=== PATIENT | male | born 1985 | race Two or more races ===

== ENCOUNTER 2017-03-13 15:29 | Emergency (ER) | payer SELFPAY ==
[~2017-03-13] VITALS: Ht 172.7 cm; Wt 83.9 kg
[2017-03-13 15:54] VITALS: BP 143/101
--- NOTE | 2017-03-13 15:59 | PHYS DOC ---
Past Medical History Past Medical History: No Pertinent History Past Surgical History: No Surgical History Alcohol Use: None Drug Use: None Adult General Chief Complaint Chief Complaint: UPPER EXTREMITY PAIN [facility] HPI Patient is a 32 year old male presents stating 2 hours prior to arrival he was having some numbness and tingling arm as well as into his left leg. Patient denies any injury or trauma. He states one hour prior to arrival he took a Tylenol in the numbness and tingling has decreased. Patient denies as mentioned any traumas or injuries. He states that this occasionally happens spontaneously once a month. 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 Review of Systems Review of Systems Constitutional: Denies fever or chills [] Eyes: Denies change in visual acuity, redness, or eye pain [] HENT: Denies nasal congestion or sore throat [] Respiratory: Denies cough or shortness of breath [] Cardiovascular: No additional information not addressed in HPI [] GI: Denies abdominal pain, nausea, vomiting, bloody stools or diarrhea [] : Denies dysuria or hematuria [] Musculoskeletal: Denies back pain or joint pain. C/o numbness and tingling in the left arm/hand and the left leg Integument: Denies rash or skin lesions [] Neurologic: Denies headache, focal weakness or sensory changes [] Endocrine: Denies polyuria or polydipsia [] Physical Exam Physical Exam Constitutional: Well developed, well nourished, no acute distress, non-toxic appearance. [] HENT: Normocephalic, atraumatic, bilateral external ears normal, oropharynx moist, no oral exudates, nose normal. [] Eyes: PERRLA, EOMI, conjunctiva normal, no discharge. [] Neck: Normal range of motion, no tenderness, supple, no stridor. [] Cardiovascular:Heart rate regular rhythm, no murmur [] Lungs & Thorax: Bilateral breath sounds clear to auscultation [] Skin: Warm, dry, no erythema, no rash. [] Back: No cervical spine, thoracic spine, lumbar spine tenderness noted, no step- offs, no crepitus, no deformities noted. Extremities: Left arm and left leg tingling and numbness, no cyanosis, no clubbing, ROM intact, no edema. Patient with equal cashier parking lot noted in upper extremities. Peripheral pulses are 2+ cap refill brisk less than 2 seconds. Patient with good sensation noted. Patient was able to ambulate with a good steady gait. Neurologic: Alert and oriented X 3, normal motor function, normal sensory function, no focal deficits noted. [] Psychologic: Affect normal, judgement normal, mood normal. [] EKG EKG [] Radiology/Procedures Radiology/Procedures [] Course & Med Decision Making Course & Med Decision Making Pertinent Labs and Imaging studies reviewed. (See chart for details) Patient was instructed to use Tylenol or ibuprofen for pain and discomfort and rest the area when the numbness and tingling starts. I suspect that this is an over usage in his upper extremities and probable lumbar issues in the lower back from being a quinonez. Patient was encouraged to use Tylenol and ibuprofen as instructed. Also recommended resting the areas once the pain occurs. Patient was encouraged to follow-up with his primary care physician for further evaluation and any type of nerve injury. Patient agrees with discharge instructions treatment regimens and follow-up recommendations. Signs and symptoms to return back to emergency department as been provided. [] Dragon Disclaimer Dragon Disclaimer This electronic medical record was generated, in whole or in part, using a voice recognition dictation system. Departure Departure Impression: Primary Impression: Numbness and tingling of left arm and leg Disposition: 01 HOME, SELF-CARE Condition: STABLE Referrals: NO PCP (PCP) Patient Instructions: Peripheral Nerve Problems-Brief Additional Instructions: Activity as tolerated Tylenol or Ibuprofen for pain and discomfort Rest the area when the numbness and tingling occurs Try to not stay in one position to long to prevent numbness, and tingling Followup with primary care provider for further evaluation Return to emergency department as needed for signs and symptoms that become worse. LUAN DUMONT [employer] ENG[employer] Mar 13, 2017 15:59
== END 2017-03-13 16:10 | disposition home or self-care (01) ==
LOC: ER 15:29
DX: R20.0 Anesthesia of skin (principal); R20.2 Paresthesia of skin
CPT/HCPCS: 99281